=== PATIENT | male | born 1995 | race Caucasian/White ===

== ENCOUNTER 2023-01-13 06:37 | Emergency (ER) | payer OTHER, SELFPAY ==
[2023-01-13] VITALS (8 sets, daily range): BP systolic 129–159; BP diastolic 79–97; PULSE 75–104; RESP 14–23; TEMP 36; O2SAT 93–99; BMI 44.5
--- NOTE | 2023-01-13 06:40 | NURSING ---
NO OLD EKGS
--- NOTE | 2023-01-13 06:47 | NURSING ---
STROKE ALERT CALLED
--- NOTE | 2023-01-13 06:48 | CT_ITS ---
EXAM: CT ANGIOGRAPHY HEAD AND NECK WITH INTRAVENOUS CONTRAST CLINICAL INDICATION: Neuro deficit, acute, stroke suspected TECHNIQUE: [place]/head and neck CT angiography protocol performed with intravenous contrast. This CT exam was performed using one or more of the following dose reduction techniques: automated exposure control, adjustment of the mA and/or kV according to patient size, and/or use of iterative reconstruction technique. MIP reconstructed images were created and reviewed. Coronal and sagittal reformatted images and MIP were created and reviewed. CONTRAST: IV 100mL Isovue-370 RADIATION DOSE: Total DLP: 814.43 mGy-cm. COMPARISON: Nonenhanced cranial CT of this date. LIMITATIONS: Motion artifact. FINDINGS: HEAD: RIGHT ANTERIOR CEREBRAL ARTERY: Unremarkable. No significant stenosis at the visualized segments. Anterior communicating artery is present. No aneurysm. RIGHT MIDDLE CEREBRAL ARTERY: Unremarkable. No significant stenosis at the visualized segments. No aneurysm. No filling defect. RIGHT POSTERIOR CEREBRAL ARTERY: Unremarkable. No occlusion or significant stenosis. No aneurysm. RIGHT INTRACRANIAL INTERNAL CAROTID ARTERY: Unremarkable. No significant stenosis. No dissection or occlusion. RIGHT INTRACRANIAL VERTEBRAL ARTERY: The proximal fourth segment of the right vertebral artery shows a short segment of slight fusiform dilatation measuring approximately 7 mm in length; along the medial wall of this minimally dilated segment is a eccentric lobulated hypodense filling defect measuring approximately 3 mm in length by 1.5 mm in transverse diameter, causing less than 50% stenosis of the lumen. No intimal flap is identified. This finding is best seen on axial images 334-337 of series 2. There is no streak artifact in this region which might cause artifact within the lumen. LEFT ANTERIOR CEREBRAL ARTERY: Unremarkable. No significant stenosis at the visualized segments. No aneurysm. LEFT MIDDLE CEREBRAL ARTERY: Unremarkable. No significant stenosis at the visualized segments. No aneurysm. No filling defect. LEFT POSTERIOR CEREBRAL ARTERY: Unremarkable. No occlusion or significant stenosis. No aneurysm. LEFT INTRACRANIAL INTERNAL CAROTID ARTERY: Unremarkable. No significant stenosis. No dissection or occlusion. LEFT INTRACRANIAL VERTEBRAL ARTERY: Unremarkable. No significant stenosis. No dissection or occlusion. BASILAR ARTERY: Unremarkable. No significant stenosis. No aneurysm. OTHER VASCULATURE: No vascular malformation. Dural venous sinuses enhance normally. No enhancing intracranial mass. No acute infarction identified. NECK: RIGHT COMMON CAROTID ARTERY: Unremarkable. No significant stenosis. No dissection or occlusion. RIGHT EXTRACRANIAL INTERNAL CAROTID ARTERY: Tortuous. No significant stenosis. No dissection or occlusion. RIGHT EXTERNAL CAROTID ARTERY: Unremarkable. No occlusion. RIGHT EXTRACRANIAL VERTEBRAL ARTERY: Unremarkable. Codominant vertebral arteries. No significant stenosis. No dissection or occlusion. LEFT COMMON CAROTID ARTERY: Unremarkable. No significant stenosis. No dissection or occlusion. LEFT EXTRACRANIAL INTERNAL CAROTID ARTERY: Tortuous. No significant stenosis. No dissection or occlusion. LEFT EXTERNAL CAROTID ARTERY: Unremarkable. No occlusion. LEFT EXTRACRANIAL VERTEBRAL ARTERY: Unremarkable. No significant stenosis. No dissection or occlusion. BRACHIOCEPHALIC AND SUBCLAVIAN ARTERIES: Unremarkable as visualized. No occlusion or significant stenosis. LUNG APICES: Unremarkable as visualized. HEAD and NECK: BONES/JOINTS: No discrete lytic or blastic abnormalities. Cervical vertebrae demonstrate normal curvature and alignment. Sphenoid mucosal thickening noted. SOFT TISSUES: Prominent adenoids again noted. [place] tonsils are also prominent and show striated enhancement suggesting tonsillitis. Normal epiglottis. Unremarkable thyroid gland. CAROTID STENOSIS REFERENCE USING NASCET CRITERIA: % ICA stenosis = (1 - narrowest ICA diameter/diameter of distal cervical ICA) x 100. Mild - <50% stenosis. Moderate - 50-69% stenosis. Severe - 70-94% stenosis. Near occlusion - 95-99% stenosis. Occluded - 100% stenosis. CT/STROKE CTA Head AND Neck W/Con IMPRESSION: Slight fusiform dilatation of the proximal intradural segment of the distal left vertebral artery, with a very small lobulated eccentric filling defect within the dilated portion, worrisome for a small amount of intraluminal /mural thrombus, causing less than 50% stenosis. Noncalcified plaque felt unlikely given the patient''s age of 27 years. No associated intimal flap or subarachnoid hemorrhage. A second call was placed to the emergency room with verbal report given to the attending physician at about 6:40 AM central time, on 01/13/2023. No other vascular abnormality identified. No MCA thrombus. No acute infarction identified Prominent palatine tonsils and adenoids. N.B. : The above Results were Read Back by Raymundo Stark MD to Lucio Mccoy MD, and understanding confirmed on 01/13/2023 07:28:29 (ET). Electronically Signed: Raymundo Stark MD at 7:47 EDT ,
--- NOTE | 2023-01-13 06:48 | CT_ITS ---
We are attempting to reach an attending provider to discuss findings. An addendum with communication details will be sent when the communication is complete. EXAM: CT HEAD WITHOUT INTRAVENOUS CONTRAST CLINICAL INDICATION: Neuro deficit, acute, stroke suspected TECHNIQUE: Multiple axial images were obtained of the head without intravenous contrast. This CT exam was performed using one or more of the following dose reduction techniques: automated exposure control, adjustment of the mA and/or kV according to patient size, and/or use of iterative reconstruction technique. RADIATION DOSE: Total DLP: 779.24 mGy-cm. COMPARISON: No relevant prior studies available. FINDINGS: BRAIN AND EXTRA-AXIAL SPACES: Unremarkable. No intra- or extra-axial hemorrhage. No evidence of acute infarct. No intracranial mass or mass effect. There is preservation of the henson/white matter interface. Posterior fossa structures are unremarkable. Ventricles are appropriate for age. No hydrocephalus. Basal cisterns are patent. BONES/JOINTS: Unremarkable. No discrete lytic or blastic abnormalities. VASCULATURE: The middle cerebral arteries are not hyperdense. SINUSES: Mild mucosal thickening noted within the right sphenoid sinus. Incidental retention cysts noted within the maxillary antra. No paranasal sinus air-fluid levels are seen. MASTOID AIR CELLS: Unremarkable. Clear. ORBITS: Visualized globes, extraocular muscles, optic nerves and retrobulbar fat appear unremarkable. NASOPHARYNX: Prominent adenoids. ASPECTS score: 10/10. CT/STROKE Brain/Head without Cont IMPRESSION: 1. Right sphenoid sinus mucosal disease. Prominent adenoids. 2. No hemorrhage or other acute intracranial abnormality identified. 3. Nonstandard communication protocol initiated. Electronically Signed: Raymundo Stark MD at 7:10 EDT ,
--- NOTE | 2023-01-13 06:48 | EKG12_ITS ---
Test Reason : STROKE Blood Pressure : / mmHG Vent. Rate : 089 BPM Atrial Rate : 089 BPM P-R Int : 168 ms QRS Dur : 086 ms QT Int : 362 ms P-R-T Axes : 028 021 008 degrees QTc Int : 440 ms Normal sinus rhythm Normal ECG Confirmed by ANGELES WHITE, ELIANA ([id number]), market editor FLORES BARRETO ([id number]) on 01/17/2023 1:02:18 PM Referred By: PAVAN Confirmed By:WARREN REYNOSO MD
--- NOTE | 2023-01-13 06:48 | RAD_ITS ---
EXAM: XR CHEST, 1 VIEW CLINICAL INDICATION: Neuro deficit, acute, stroke suspected TECHNIQUE: Frontal view of the chest. COMPARISON: No relevant prior studies available. FINDINGS: LUNGS AND PLEURAL SPACES: Limited degree of inspiration with crowding of bronchovascular markings. No consolidation or edema. No pneumothorax. No effusion. HEART: Heart size is upper normal, accentuated by the degree of inspiration. Normal pulmonary vasculature. MEDIASTINUM: Minimal elongation of the thoracic aorta. Trachea is midline. No mediastinal widening. BONES/JOINTS: No acute osseous abnormality. SOFT TISSUES: Unremarkable. RAD/Chest 1 View IMPRESSION: No radiographic evidence of acute cardiopulmonary disease. Electronically Signed: Raymundo Stark MD at 7:55 EDT ,
--- NOTE | 2023-01-13 06:49 | EDS_ITS ---
HPI History of Present Illness Chief Complaint: Neuro S/Sx Narrative Narrative: 27-year-old male presenting with lightheadedness and falling to the right. He also has dizziness. He states his vision is off. When he covers 1 eye he can see well but when he uses both he cannot see very well. Images do not look on top of each other or [id number] but they are somewhat askew. Patient last known well last night at 9 PM when he went to bed. Denies any head trauma or headache. Patient has no medical problems. Patient states he tried to get up and walk and he was staggering and falling to the right. He feels that the left side of his mouth is tingling but he has a right-sided facial droop. He is able to overcome this. No weakness in his extremities. No numbness or tingling elsewhere. PFSH PFSH Medical History no medical history Home Medications NK 01/13/23 [History Last Taken Unknown] Allergy/AdvReac Type Severity Reaction Status Date / Time No Known Allergies Allergy Verified 01/13/23 06:44 Surgical History no surgical history Social History Smoking Status: Never smoker ROS ROS ED Constitutional Constitutional ED: Denies chills or fever(s) Eyes Eyes: Reports diplopia ENT ENT ED: Denies rhinorrhea or sore throat Cardiovascular Cardiovascular: Denies chest pain or palpitations Respiratory/Chest Respiratory/Chest: Denies cough or dyspnea Gastrointestinal Gastrointestinal: Denies abdominal pain Genitourinary Genitourinary ED: Denies dysuria or hematuria Musculoskeletal Musculoskeletal: Denies arthralgias or back pain Integumentary Denies abscess or Abrasions Neurologic Neurologic: Denies headache(s) Psychiatric Psychiatric: Denies anxiety or depression EXAM Physical Exam Const Vital Signs: 01/13/23 06:38 01/13/23 07:04 01/13/23 07:04 Temperature 96.8 F L Temperature Source Temporal Pulse Rate 104 H 80 Respiratory Rate 19 H 23 H Blood Pressure 159/79 H 152/93 H Blood Pressure Mean 105 112 Pulse Ox 97 96 95 Oxygen Delivery Method Room Air Room Air Room Air 01/13/23 07:30 Temperature Temperature Source Pulse Rate 86 Respiratory Rate 19 H Blood Pressure 143/94 H Blood Pressure Mean 110 Pulse Ox 94 Oxygen Delivery Method Room Air Positive well nourished General Appearance ED: NAD Eyes PERRL and EOMs intact bilaterally Resp normal respiratory effort and clear to auscultation bilaterally Auscultation: Negative for rales, rhonchi or wheezes GI normal to inspection, nondistended, normoactive bowel sounds Neuro oriented x3 and CN's II-XII intact bilaterally Sensorium / Orientation: alert Speech: speech normal Psych mental status grossly normal NIHSS NIHSS Initial: 1a Level of Consciousness: 0 1b LOC Questions (Score 2 if aphasic/stupor): 0 1c LOC Commands (Only score 1st attempt): 0 2 Best Gaze (If aphasic, use reflexive mvmts.): 0 3 Visual: 1 4 Facial Palsy: 2 5 Motor Arm Right (UN = amputation/fusion): 0 5 Motor Arm Left: 0 6 Motor Leg Right: 0 6 Motor Leg Left: 0 7 Limb ataxia (Only + if out of proportion): 0 8 Sensory (Aphasia/stupor=0 or 1, coma=2): 0 9 Best Language: 0 10 Dysarthria (mute, coma=2, intubated=UN): 0 11 Extinction and Inattention (only scored if +): 0 Total Score: 3 MDM MDM MDM Narrative Medical decision making narrative: Patient presenting with strokelike symptoms. He has diplopia. He looks like he has a facial droop and is completely able to overcome this. No sensory deficits. No speech deficits. He does have a diplopia. He is given NIH stroke scale score of 3. Stroke team was activated although he is outside the moment no tPA do not have concern for large vessel occlusion. CT brain and CTA were ordered. Lab work was obtained. CBC shows a mild leukocytosis. Hemoglobin hematocrit stable. Platelets are normal. PT and INR normal. Renal function electrolytes within normal limits. High-sensitivity troponin is 4. EKG normal sinus rhythm with a ventricular 89 bpm without sign of ischemic change on my interpretation. Chest x-ray is negative for acute findings on my interpretation. Radiologist interprets this and agrees. CT of the brain was negative for acute stroke. CTA head and neck shows slight fusiform dilatation of the proximal intradural segment of the distal left vertebral artery, with a very small lobulated eccentric filling defect within the dilated portion, worrisome for a small amount of intraluminal/mural thrombus, causing less than 50% stenosis. I made a phone call to the stroke neurologist who recommended the patient be transferred to [facility] immediately. She recommended [facility] if possible. Patient counseled on this and the findings. He is amenable to going to [facility]. [facility] was called. Patient be transported to [facility] ER to ER Impression: 1. Vertebral artery occlusion 2. Diplopia 3. Stroke Lab Data Labs: Laboratory Results - last 24 hr 01/13/23 01/13/23 06:43 06:45 WBC 7.0 RBC 4.86 Hgb 14.5 Hct 44.8 MCV 92.2 MCH 29.8 MCHC 32.4 RDW Std Deviation 42.7 RDW Coeff of Damián 12.6 Plt Count 217 MPV 9.3 Immature Gran % (Auto) 0.300 Neut % (Auto) 49.0 Lymph % (Auto) 41.3 H [place] % (Auto) 6.7 Eos % (Auto) 2.3 Baso % (Auto) 0.4 Absolute Neuts (auto) 3.4 Absolute Lymphs (auto) 2.88 Nucleated RBC % 0 PT 12.9 INR 1.0 APTT 28.3 Sodium 141 Potassium 4.0 Chloride 107 Carbon Dioxide 28.0 Anion Gap 6 BUN 22 H Creatinine 0.94 Estim Creat Clear Calc 127.27 Est GFR (MDRD) Af Amer 121 Est GFR (MDRD) Non-Af 100 BUN/Creatinine Ratio 23.3 H Glucose 88 Calcium 8.9 Troponin I High Sens 4 POC Glucose 87 Radiography Diagnostic Testing: Clinical Impression(s) from Imaging Studies Brain CT 01/13/23 06:48 IMPRESSION: 1. Right sphenoid sinus mucosal disease. Prominent adenoids. 2. No hemorrhage or other acute intracranial abnormality identified. 3. Nonstandard communication protocol initiated. Electronically Signed: Raymundo Stark MD at 7:10 EDT , ADDENDUM: 01/13/23716 IMPRESSION: 1. Right sphenoid sinus mucosal disease. Prominent adenoids. 2. No hemorrhage or other acute intracranial abnormality identified. 3. Nonstandard communication protocol initiated. N.B. : The above Results were Read Back by Raymundo Stark MD to Sean Weinberg DO, and understanding confirmed on 01/13/2023 07:10:25 (ET). Electronically Signed: Raymundo Stark MD at 7:10 EDT , Chest X-Ray 01/13/23 06:48 IMPRESSION: No radiographic evidence of acute cardiopulmonary disease. Electronically Signed: Raymundo Stark MD at 7:55 EDT , Head/Neck CTA 01/13/23 06:48 IMPRESSION: Slight fusiform dilatation of the proximal intradural segment of the distal left vertebral artery, with a very small lobulated eccentric filling defect within the dilated portion, worrisome for a small amount of intraluminal /mural thrombus, causing less than 50% stenosis. Noncalcified plaque felt unlikely given the patient''s age of 27 years. No associated intimal flap or subarachnoid hemorrhage. A second call was placed to the emergency room with verbal report given to the attending physician at about 6:40 AM central time, on 01/13/2023. No other vascular abnormality identified. No MCA thrombus. No acute infarction identified Prominent palatine tonsils and adenoids. N.B. : The above Results were Read Back by Raymundo Stark MD to Lucio Mccoy MD, and understanding confirmed on 01/13/2023 07:28:29 (ET). Electronically Signed: Raymundo Stark MD at 7:47 EDT , ADDENDUM: 01/13/23 0754 IMPRESSION: Slight fusiform dilatation of the proximal intradural segment of the distal left vertebral artery, with a very small lobulated eccentric filling defect within the dilated portion, worrisome for a small amount of intraluminal /mural thrombus, causing less than 50% stenosis. Noncalcified plaque felt unlikely given the patient''s age of 27 years. No associated intimal flap or subarachnoid hemorrhage. A second call was placed to the emergency room with verbal report given to the attending physician at about 6:40 AM central time, on 01/13/2023. No other vascular abnormality identified. No MCA thrombus. No acute infarction identified Prominent palatine tonsils and adenoids. N.B. : The above Results were Read Back by Raymundo Stark MD to Lucio Mccoy MD, and understanding confirmed on 01/13/2023 07:28:29 (ET). Electronically Signed: Raymundo Stark MD at 7:47 EDT , Critical Care Time Critical Care Time: Yes Critical care time (excluding procedures): 30-74 minutes (32), Discussing w/Patient &/or Family/Separator Operator, Discussing w/Consultants, Arranging Admission or Transfer and Performing Direct Patient Care at Bedside Discharge Plan Triage Chief Complaint: Neuro S/Sx ED Provider: Sean Weinberg Dx/Rx/DC Orders Primary Care Provider: Feliberto Galvan
[2023-01-13 06:55] LABS: Absolute Lymphocyte Count 2.88 X10^3/uL (0.83-4.51); Absolute Neutrophil Count 3.4 X10^3/uL (2.0-7.7); Basophil# 0.03 X10^3/uL; Basophil% 0.4 % (0-1); Eosinophil# 0.16 X10^3/uL; Eosinophils% 2.3 % (0-5); Hematocrit 44.8 % (40-54); Hemoglobin 14.5 g/dL (13.0-16.5); Lymphocyte # 2.88 X10^3/ul (0.83-4.51); Lymphocyte % 41.3 % (19-41); Mean Corp Hgb Conc 32.4 g/dL (32-36); Mean Corpuscular Hgb 29.8 pg (27.0-32.0); Mean Corpuscular Volume 92.2 fL (80-94); Mean Platelet Vol. 9.3 fl (6.2-12.0); Monocyte# 0.47 X10^3/uL; Monocyte% 6.7 % (0-10); NRBC Flagged by Analyzer 0 % (0-5); Neutrophil # 3.42 X10^3/uL (2.7-7.7); Platelet Count 217 K/mm3 (150-450); RBC Distribution Width CV 12.6 % (11.6-14.6); RBC Distribution Width SD 42.7 fl (35.1-43.9); Red Blood Count 4.86 M/mm3 (4.6-6.2)
[2023-01-13 07:01] LABS: Bedside Glucose 87 mg/dL (74-106)
[2023-01-13 07:07] LABS: Prothrombin Time (Protime)PT. 12.9 SECONDS (11.7-14.9)
[2023-01-13 07:08] LABS: Partial Thromboplast Time 28.3 Seconds (24.1-36.2)
[2023-01-13 07:13] LABS: Anion Gap 6 (5-15); BUN 22 mg/dL (7-18); BUN/Creat Ratio 23.3 RATIO (10-20); Calcium,Total 8.9 mg/dL (8.5-10.1); Chloride 107 mmol/L (98-107); Creatinine, Serum 0.94 mg/dL (0.70-1.30); EST Glomerular Filtration Rate 100 mL/min (>60); Est Glom Filt Rate - Afr Amer 121 mL/min (>60); Estimated Creatinine Clearance 127.27 ml/min; Glucose 88 mg/dL (74-106); Sodium Level 141 mmol/L (136-145); Troponin-I HS 4 pg/mL (3.0-78.0)
--- NOTE | 2023-01-13 07:37 | NURSING ---
DR MENA FOR DR HAYDEN
--- NOTE | 2023-01-13 07:50 | NURSING ---
PCU TERELETSKY STROKE LIKE SYMPTOMS
[2023-01-13] MEDS: Aspirin 325 MG Tablet PO (08:13)
--- NOTE | 2023-01-13 08:25 | NURSING ---
0818 [facility] ETA IS 10 MIN
== END 2023-01-13 08:53 | disposition short-term general hospital (02) ==
PROVIDERS: Emergency Provider Student in an Organized Health Care Education/Training Program; PCP Family Medicine; Visit Provider Student in an Organized Health Care Education/Training Program
DX: I63.9 Cerebral infarction, unspecified (principal); H53.2 Diplopia; I65.09 Occlusion and stenosis of unspecified vertebral artery
CPT/HCPCS: 70450; 70496; 70498; 71045; 80048; 82962; 84484; 85025; 85610; 85730; 93005; 99284; Q9967; A4216

== ENCOUNTER → 2023-04-22 | Outpatient (CLI) | payer OTHER, SELFPAY ==
--- NOTE | 2023-04-22 08:23 | CT_ITS ---
EXAM: CT ANGIOGRAPHY HEAD AND NECK WITH INTRAVENOUS CONTRAST CLINICAL INDICATION: CEREBRAL INFRACTION TECHNIQUE: [place]/head and neck CT angiography protocol performed with intravenous contrast. This CT exam was performed using one or more of the following dose reduction techniques: automated exposure control, adjustment of the mA and/or kV according to patient size, and/or use of iterative reconstruction technique. MIP reconstructed images were created and reviewed. CONTRAST: 100 cc of Isovue-370 IV. RADIATION DOSE: CTDIvol = 27.55 mGy, DLP = 1646.89 mGy-cm COMPARISON: 01/13/2023. FINDINGS: HEAD: RIGHT ANTERIOR CEREBRAL ARTERY: Unremarkable. No significant stenosis at the visualized segments. Anterior communicating artery is present. No aneurysm. RIGHT MIDDLE CEREBRAL ARTERY: Unremarkable. No significant stenosis at the visualized segments. No aneurysm. RIGHT POSTERIOR CEREBRAL ARTERY: Unremarkable. No occlusion or significant stenosis. No aneurysm. RIGHT INTRACRANIAL INTERNAL CAROTID ARTERY: Unremarkable. No significant stenosis. No dissection or occlusion. RIGHT INTRACRANIAL VERTEBRAL ARTERY: Unremarkable. No significant stenosis. No dissection or occlusion. LEFT ANTERIOR CEREBRAL ARTERY: Unremarkable. No significant stenosis at the visualized segments. No aneurysm. LEFT MIDDLE CEREBRAL ARTERY: Unremarkable. No significant stenosis at the visualized segments. No aneurysm. LEFT POSTERIOR CEREBRAL ARTERY: Unremarkable. No occlusion or significant stenosis. No aneurysm. LEFT INTRACRANIAL INTERNAL CAROTID ARTERY: Unremarkable. No significant stenosis. No dissection or occlusion. LEFT INTRACRANIAL VERTEBRAL ARTERY: Previously noted probable thrombus in the intracranial portion of the left vertebral artery has resolved. BASILAR ARTERY: Unremarkable. No significant stenosis. No aneurysm. OTHER VASCULATURE: No vascular malformation. NECK: RIGHT COMMON CAROTID ARTERY: Unremarkable. No significant stenosis. No dissection or occlusion. RIGHT EXTRACRANIAL INTERNAL CAROTID ARTERY: Unremarkable. No significant stenosis. No dissection or occlusion. RIGHT EXTERNAL CAROTID ARTERY: Unremarkable. No occlusion. RIGHT EXTRACRANIAL VERTEBRAL ARTERY: Unremarkable. No significant stenosis. No dissection or occlusion. LEFT COMMON CAROTID ARTERY: Unremarkable. No significant stenosis. No dissection or occlusion. LEFT EXTRACRANIAL INTERNAL CAROTID ARTERY: Unremarkable. No significant stenosis. No dissection or occlusion. LEFT EXTERNAL CAROTID ARTERY: Unremarkable. No occlusion. LEFT EXTRACRANIAL VERTEBRAL ARTERY: Arises directly from the aortic arch. No significant stenosis. No dissection or occlusion. BRACHIOCEPHALIC AND SUBCLAVIAN ARTERIES: Unremarkable as visualized. No occlusion or significant stenosis. LUNG APICES: Unremarkable as visualized. HEAD and NECK: BONES/JOINTS: Unremarkable. No discrete lytic or blastic abnormalities. SOFT TISSUES: Unremarkable. CAROTID STENOSIS REFERENCE USING NASCET CRITERIA: % ICA stenosis = (1 - narrowest ICA diameter/diameter of distal cervical ICA) x 100. Mild - <50% stenosis. Moderate - 50-69% stenosis. Severe - 70-94% stenosis. Near occlusion - 95-99% stenosis. Occluded - 100% stenosis. CT/CTA Head AND Neck W/ Contrast IMPRESSION: 1. Previously noted probable thrombus in the intracranial portion of the left vertebral artery has resolved. 2. No other acute vascular abnormality. 3. The left vertebral artery arises directly from the aortic arch. Electronically Signed: Beck Castro MD at 10:25 EDT ,
== END | disposition home or self-care (01) ==
PROVIDERS: PCP Family Medicine; Referring Provider Psychiatry & Neurology Neurology; Visit Provider Psychiatry & Neurology Neurology
DX: I63.9 Cerebral infarction, unspecified (principal)
CPT/HCPCS: 70496; 70498; Q9967